=== PATIENT | male | born 2000 | race Caucasian/White ===

== ENCOUNTER 2021-12-10 18:18 | Emergency (ER) | payer OTHER, SELFPAY ==
[2021-12-10 18:24] VITALS: BP 116/58; PULSE 85; RESP 16; TEMP 37; O2SAT 98; BMI 25.8
--- NOTE | 2021-12-10 18:27 | DI.RAD.S_ITS ---
PROCEDURE: XR WRIST LT MIN 3V INDICATIONS: wrist pain TECHNIQUE: 4 views of the wrist were acquired. COMPARISON: None. FINDINGS: Bones: No fractures or dislocations. Scaphoid view: No acute fracture visualized. Soft tissues: No suspicious soft tissue calcifications. IMPRESSION: No acute osseous abnormality. If symptoms persist, follow-up radiographs and/or CT or MRI may be helpful for further evaluation. Dictated by: Thong Crenshaw M.D. on 12/10/2021 at 18:56 Approved by: Thong Crenshaw M.D. on 12/10/2021 at 19:00
--- NOTE | 2021-12-10 19:06 | ED_ITS ---
HPI - Extremity Problem General Chief complaint: Extremity Problem,Nontraumatic Stated complaint: Left hand numb, Unable to move Time Seen by Provider: 12/10/21 18:51 History of Present Illness HPI Narrative: This is a 21-year-old male with prior history of substance abuse who reports th at he has been in remission for 1.5 years and presents to the emergency department today for concern about months of left hand numbness with the inability to extend his left wrist. On exam, he denies having acute numbness, states it was numb before, states that his sensation in his left hand is the same as the right hand including the dorsum. He denies any numbness or tingling in his hand at all. Patient states that his wrist is primarily where it is uncomfortable, he states it is sometimes painful on the radial aspect. He has full range of motion of his fingers, denies any pain over his metacarpals, is able to flex his wrist and move all of his fingers but is unable to extend his wrist. He states that he thought he slept on it wrong initially but it has not improved at all over the last 2 months. Patient has a history of cutting, he is covered in scars from both drug abuse and self-harm, states that he has been in remission is not on any pain contract at this time. He denies any recent fever, fatigue, illness, he denies any arm pain arm weakness or elbow involvement. He states his symptoms are primarily isolated to the radial side of his left wrist. He denies any cold sensation or hot sensation denies any history of significant trauma or known nerve injury. Denies any neck pain, shoulder pain, or elbow problems. Review of Systems Review of Systems Narrative: General: denies fever, chills Head/Neck: denies headache, neck pain Eyes: denies visual changes, eye pain Cardio: denies chest pain, palpitations Respiratory: denies shortness of breath, cough GI: denies abdominal pain, nausea, vomiting, or diarrhea MSK: denies new joint pain, muscle weakness or swelling, endorses left wrist weakness and inability to extend, states his left hand was numb for a very long time more on the ulnar side and is no longer. Skin: denies rash, itching or wound Neuro: denies numbness, tingling, dizziness Exam Narrative Exam Narrative: Independently reviewed vitals signs and nursing notes. General: cooperative, comfortable, in no acute distress, patient is frequently rubbing his face, appears anxious, is cooperative and pleasant, good historian, denies any substance abuse or intoxication at this time. Head: atraumatic, symmetrical facial expressions Neck: supple Eyes: equal round and reactive, EOMI, conjunctiva normal Nose: nares patent, no rhinorrhea Mouth/Throat: moist mucus membranes Cardiovascular: regular rate and rhythm, no peripheral edema, warm extremities Respiratory: normal effort, able to speak in complete sentences, no audible wheezing, stridor, or rales. No retractions or tachypnea. GI: abdomen soft, nontender to palpation, nondistended, no masses, no exquisite tenderness with exam, without guarding or rebound. MSK: moves all extremities, neurovascularly intact, no weakness, normal tone Skin: brisk capillary refill, no rash, mild erythema surrounding his left wrist on the dorsum and volar aspect, no fluctuance, masses, palpable areas of tenderness, no hypersensitivity or dullness to sensation, no numbness or tingling to his hand in comparison to the right and tested on all fingers and all aspects of his hand. He is able to flex and extend all of his fingers, he is able to flex his left wrist but unable to extend it and it is in a dropped position even when he raises it up vertically. Radial pulses 2+, ulnar pulse is palpable, capillary refill is brisk and there is mild edema around his left wrist. No signs of cellulitis, no significant erythema, mildly pink, patient states is likely from rubbing. Patient's skin on his arms is covered in scars from self-harm and from skin popping from drug abuse, no open lesions or open areas of infection visualize, the skin over his left wrist is not more warm than other areas. Neuro: normal speech and cognition, A&O x3 Psych: mental status is grossly normal, congruent mood, normal affect, pleasant and cooperative Initial Vital Signs Initial Vital Signs: Vital Signs Temperature 98.6 F 12/10/21 18:24 Pulse Rate 85 12/10/21 18:24 Respiratory Rate 16 12/10/21 18:24 Blood Pressure 116/58 L 12/10/21 18:24 Pulse Oximetry 98 12/10/21 18:24 Oxygen Delivery Method 12/10/21 18:24 Course Orders Ordered: ED Orders 12/10/21 18:27 XR wrist LT min 3V Stat 12/10/21 19:08 Consult to Orthopedic Surgery Stat Discontinued Medications Acetaminophen (Acetaminophen 325 Mg Tablet) 975 mg PO NOW ONE Stop: 12/10/21 18:56 Last Admin: 12/10/21 19:29 Dose: Not Given Documented By: ROBERTA Ketorolac Tromethamine (Ketorolac 30 Mg/Ml Vial) 15 mg IM NOW ONE Stop: 12/10/21 18:56 Last Admin: 12/10/21 19:29 Dose: Not Given Documented By: ROBERTA Vital Signs Vital signs: Vital Signs - 8 hr 12/10/21 18:24 12/10/21 19:41 Temperature 98.6 F Pulse Rate 85 76 Respiratory Rate 16 Blood Pressure 116/58 L Pulse Oximetry 98 99 Oxygen Delivery Method Room Air Room Air MDM - Extremity (Nontraumatic) Imaging Data Extremity x-ray #1: Radiologist's Impression: PROCEDURE:? XR WRIST LT MIN 3V ? INDICATIONS: wrist pain ? TECHNIQUE:? 4 views of the wrist were acquired.? ? COMPARISON:? None. ? FINDINGS:? ? Bones:? No fractures or dislocations.? ? Scaphoid view:? No acute fracture visualized. ? Soft tissues:? No suspicious soft tissue calcifications.? ? IMPRESSION:? No acute osseous abnormality.? If symptoms persist, follow-up radiographs and/or CT or MRI may be helpful for further evaluation. ? ? Dictated by: Thong Crenshaw M.D. on 12/10/2021 at 18:56 ? ? Approved by: Thong Crenshaw M.D. on 12/10/2021 at 19:00 ? MDM Narrative Medical decision making narrative: This is a 21-year-old male who presents to the emergency department with concern about left wrist strap for the last 2 months without known trauma or significant insult. Patient has a remote history of substance abuse over 1.5 years ago and is in remission, denies any substance abuse at this time. Patient is neurovascularly intact with a strong radial pulse, palpable ulnar pulse,, brisk cap refill to all of his fingers with full range of motion of all of his fingers and flexion of his left wrist with inability to extend his left wrist. This is concerning for wrist drop caused by compressive damage to the radial nerve. Patient thinks that he could have slept on his wrist and now has had wrist drop since he woke up with it 2 months ago. I referred patient to Orthopedics for evaluation because he does not have a primary care provider,, he could benefit nerve testing, he was splinted in a Velcro wrist splint for optimal blood flow and encouraged to sleep in it. Suggested anti-inflammatories and Tylenol as needed for any pain, elevation and follow-up with orthopedics for referral to physical therapy, outpatient testing as needed, or for surgical treatment if needed. Patient does not appear to have any signs of infection at this time, differential includes cellulitis as well as compressive radial nerve palsy. Patient is appropriate and amenable to discharge home. Vital signs are stable on repeat examination is unremarkable. Patient has been informed of results. Patient has been given strict return to ER precautions for any new or worsening symptoms. Patient understands to follow up closely with outpatient providers as instructed. Patient understands plan and agrees to discharge home. All questions and concerns answered at this time. Discharge Plan Departure Patient Disposition: Home Clinical Impression: Left wrist drop Activity Restrictions/Additional Instructions: *You have been diagnosed with wrist drop which is concerning for a nerve injury of your left arm, this could be from compression if he slept on this, or other traumatic injury in the past. Please wear this splint to help maximize blood flow and position for healing. Please follow-up at [facility] for evaluation of this, you may need nerve testing, physical therapy or other evaluation. Please look up and find a primary care provider on your insurance, this is helpful in the future if you need any outpatient services like physical therapy or outpatient imaging. I put in a consultation for you, please call [facility] and make an appointment for follow-up. You can take ibuprofen every 6 hours to help with inflammation, keep it elevated and you can try topical Voltaren gel which is available [id number] if that is helpful. I hope that it starts to improve. Thank you for your patients today, I wish you look at Orthopedics. *What to do: *Please continue to take your regular medications as directed. [ ] New medication prescriptions sent to your pharmacy: [ ] [ ] New medication written as a paper prescription [ x] No new medications given *Please follow up with your primary care provider in 2-3 days, call for an appointment. Let them know you were seen in the Emergency Department and that we asked that you be seen for follow-up. We will electronically transmit a record of today's note if your PCP is in our system *If you do not have a primary care provider please contact [phone] to establish care with one of the [facility] primary care providers. *Return to Emergency Department if you should have any new, worsening, or concerning symptoms, such as [fever greater than 101F, chills, worsening pain, persistent vomiting or other bothersome symptoms]. Referrals: [facility] [Provider Group] [place] MD [Primary Care Provider] - Visit Report Forms: Patient Portal/API
[2021-12-10 19:41] VITALS: PULSE 76; O2SAT 99
== END 2021-12-10 19:41 | disposition home or self-care (01) ==
PROVIDERS: Emergency Provider Nurse Practitioner Critical Care Medicine; Family Provider Family Medicine; PCP Family Medicine
DX: M21.332 Wrist drop, left wrist (principal)
CPT/HCPCS: 73110; 99282; 99283